=== PATIENT | male | born 1955 | race Caucasian/White ===

== ENCOUNTER 2016-07-17 08:16 | Outpatient (CLI) | payer MEDICARE, BC ==
[~2016-07-17] VITALS: Ht 188 cm; Wt 71.7 kg
[2016-07-17] VITALS (8 sets, daily range): BP systolic 83–100; BP diastolic 49–58
[~2016-07-17 08:16] MED LIST: ALPR1TAB6 PO; ALPR2TAB5 PO; AMIT25TA PO; APIX5TAB PO; ASCO100065 PO; ASCO500T2 PO; ASPI-482 PO; ATEN25TA PO; CHOL3000 PO; CLOP75TA PO; COCO1000 PO; CYAN1TAB28 PO; DIGO125T PO; FLAX10003 PO; GABA-586 PO; HAWT150C PO; LACT1CAP6 PO; LUTE40CA PO; MAGN400C PO; MAGN500C PO; MULT-208 PO; NIAC100T2 PO; OMEG1CAP28 PO; OMEG1CAP6 PO; OMEP40CA5 PO; PRED-220 PO; TRAM50TA PO; VITA100020 PO; VITA1TAB19 PO; ZINC30CA PO; ZINC50TA2 PO
[2016-07-17] MEDS ORDERED: [UNRECOGNIZED DRUG - OTHER] PO (08:40)
[2016-07-17] MEDS ORDERED: LEVO500T11 PO (08:40)
[2016-07-17] MEDS ORDERED: ARGI1000 PO (08:40)
[2016-07-17 09:01] LABS: BASO % 1 % (0-3); EOS % 2 % (0-3); HEMATOCRIT 40.5 % (39.0-53.0); HEMOGLOBIN 13.8 g/dL (13.0-17.5); LYMPH # 1.9 x10^3/uL (1.0-4.8); LYMPH % 26 % (24-48); MEAN CORPUSCULAR HEMOGLOBIN 30 pg (25-35); MEAN CORPUSCULAR HGB CONC 34 g/dL (31-37); MEAN CORPUSCULAR VOLUME 89 fL (79-100); MONO % 9 % (0-9); NEUT % 63 % (31-73); PLATELET COUNT 195 x10^3/uL (140-400); RED BLOOD COUNT 4.55 x10^6/uL (4.30-5.70); WHITE BLOOD COUNT 7.6 x10^3/uL (4.0-11.0)
[2016-07-17 09:11] LABS: INR 1.1 (0.8-1.1); PROTHROMBIN TIME PATIENT 13.8 SEC (11.7-14.0)
[2016-07-17 09:14] LABS: CALCIUM 9.8 mg/dL (8.5-10.1); CREATININE 0.8 mg/dL (0.7-1.3); GFR 98.6
[2016-07-17] MEDS ORDERED: TURM500C7 PO (09:36)
[2016-07-17] MEDS ORDERED: UBID100C26 PO (09:36)
[2016-07-17] MEDS ORDERED: IOHEXOL 300 MG/ML 100ML VIAL. ONE (10:10)
[2016-07-17] MEDS ORDERED: LIDOCAINE 1% / SOD BICARB 8.4% 20 ML VIAL. IJ ONE ×2 (10:10→11:15)
[2016-07-17] MEDS ORDERED: IODIXANOL 320MG/ML 50ML VIAL. ONE (10:10)
[2016-07-17] MEDS ORDERED: IODIXANOL 320 MG/ML 100 ML VIAL. ONE (10:10)
[2016-07-17] MEDS ORDERED: HEPARIN for ARTERIAL LINE 1,500 ML ONE (10:10)
[2016-07-17] MEDS ORDERED: FENTANYL PF 100 MCG/2 ML VIAL. ONE (10:32)
[2016-07-17] MEDS ORDERED: MIDAZOLAM HCL 2 MG/2 ML VIAL. ONE (10:33)
[2016-07-17] MEDS ORDERED: IODIXANOL 320 MG/ML 100 ML VIAL. IART ONE (11:15)
[2016-07-17] MEDS ORDERED: CONTRAST GIVEN MC PRN (11:15)
[2016-07-17] MEDS ORDERED: FENTANYL PF 100 MCG/2 ML VIAL. IV ONE (11:15)
[2016-07-17] MEDS ORDERED: MIDAZOLAM HCL 2 MG/2 ML VIAL. IV ONE (11:15)
[2016-07-17] MEDS ORDERED: IOHEXOL 300 MG/ML 100ML VIAL. IART ONE (11:15)
--- NOTE | 2016-07-17 12:01 | PDOC1 ---
History and Physical Date of Procedure Date of Admission 07/17/16 Procedure Procedure Abdominal aortogram with rt leg angio +/- intervention Indication Indication Recurrent rt leg pain. Thrombosed rt fem-pop graft by Doppler. Past Medical History Past Medical History See Nursing Pre Procedure PMH Past Surgical History Past Surgical History See Nursing Pre Procedure PSH Current Medications Current Medications Current Medications Lidocaine/Sodium Bicarbonate 20 ml 20 ml STK-MED ONCE IJ ; Start 07/17/16 at 10: 10; Stop 07/17/16 at 10:11; Status DC Heparin Sodium/ Sodium Chloride 1,500 ml @ As Directed STK-MED ONCE .ROUTE ; Start 07/17/16 at 10:10; Stop 07/17/16 at 10:11; Status DC Iodixanol (Visipaque 320) 50 ml STK-MED ONCE .ROUTE ; Start 07/17/16 at 10:10; Stop 07/17/16 at 10:11; Status DC Iohexol (Omnipaque 300 Mg/ml) 100 ml STK-MED ONCE .ROUTE ; Start 07/17/16 at 10: 10; Stop 07/17/16 at 10:11; Status DC Iodixanol (Visipaque 320) 100 ml STK-MED ONCE .ROUTE ; Start 07/17/16 at 10:10; Stop 07/17/16 at 10:11; Status DC Fentanyl Citrate (Fentanyl 2ml Vial) 100 mcg STK-MED ONCE .ROUTE ; Start at 10:32; Stop 07/17/16 at 10:33; Status DC Midazolam HCl (Versed) 2 mg STK-MED ONCE .ROUTE ; Start 07/17/16 at 10:33; Stop 07/17/16 at 10:34; Status DC Heparin Sodium/ Sodium Chloride 1,000 unit 1X ONCE IART Last administered on t 11:39; Start 07/17/16 at 11:15; Stop 07/17/16 at 11:16; Status DC Lidocaine/Sodium Bicarbonate (Buffered Lidocaine 1%) 20 ml 1X ONCE IJ Last administered on 07/17/16t 11:15; Start 07/17/16 at 11:15; Stop 07/17/16 at 11:16 ; Status DC Midazolam HCl (Versed) 2 mg 1X ONCE IV ; Start 07/17/16 at 11:15; Stop at 11:16; Status DC Fentanyl Citrate (Fentanyl 2ml Vial) 100 mcg 1X ONCE IV ; Start 07/17/16 at 11: 15; Stop 07/17/16 at 11:16; Status DC Iohexol (Omnipaque 300 Mg/ml) 100 ml 1X ONCE IART Last administered on t 11:40; Start 07/17/16 at 11:15; Stop 07/17/16 at 11:16; Status DC Iodixanol (Visipaque 320) 100 ml 1X ONCE IART Last administered on 07/17/16t 11:15; Start 07/17/16 at 11:15; Stop 07/17/16 at 11:16; Status DC Info (Do NOT chart on this entry -- for MONITORING) 1 each PRN DAILY PRN MC SEE COMMENTS; Start 07/17/16 at 11:15; Stop 07/19/16 at 11:14 Active Scripts Active Reported Turmeric (Turmeric Root Extract) 500 Mg Capsule 500 Mg PO Coq-10 (Ubidecarenone) 100 Mg Capsule 300 Mg PO DAILY L-Carnitine (Levocarnitine) 500 Mg Tablet 1,500 Mg PO DAILY L-Arginine (Arginine Hcl) 1,000 Mg Tablet 3,000 Mg PO DAILY [alpha folic acid] 1 Tab PO DAILY Coconut Oil 1,000 Mg Capsule 1,000 Mg PO UD Vitamin [id number]-[id number] Acid Tablet (Cyanocobalamin/Folic Acid) 1 Each Tablet 1 Each PO B Complex (Vitamin B Complex) 1 Each Tablet 1 Each PO Vitamin D3 (Cholecalciferol (Vitamin D3)) 3,000 Unit Tablet 3,000 Unit PO DAILY Vitamin E (Vitamin E Mixed) 1,000 Unit Capsule 1,000 Unit PO DAILY Lutein 40 Mg Capsule 40 Mg PO DAILY Niacin 100 Mg Tablet 300 Mg PO HS Amitriptyline Hcl 25 Mg Tablet 1 Tab PO QHS Gabapentin 300 Mg Capsule 300 Mg PO BID Zinc (Zinc Gluconate-Zinc Picolinate) 30 Mg Capsule 120 Mg PO DAILY Fish Oil 1,200 Mg Softgel ([place]-3 Fatty Acids/Fish Oil) 1 Each Capsule 2 Each PO DAILY Magnesium (Magnesium Oxide) 500 Mg Capsule 1,000 Mg PO DAILY Vitamin C (Ascorbic Acid) 1,000 Mg Tab.chew 2,000 Mg PO Eliquis (Apixaban) 5 Mg Tablet 5 Mg PO DAILY last dose was Thursday07/14/16 Alprazolam 1 Mg Tablet 1 Mg PO Q4HRS PRN Prednisone 10 Mg Tablet 10 Mg PO PRN PRN Digoxin 125 Mcg Tablet 1 Tab PO DAILY Allergies Allergies: Coded Allergies: Penicillins (Verified Allergy, Intermediate, 07/17/16) Physical Exam Vital Signs Vital Signs Date Time Temp Pulse Resp B/P Pulse Ox O2 Delivery O2 Flow Rate FiO2 07/17/16 11:34 50 14 100 Room Air 07/17/16 09:31 97.8 100/58 97.8 Lungs: Clear to auscultation Heart: Other (Irregular rate and rhythm) 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 Nonpalpable rt ankle/foot pulses Rt foot warm, without ischemic ulcerations Diagnostic Data/Imaging Images Prior PMC arteriograms/interventions reviewed. Assessment Assessment Severe PAD. Recurrent rt leg pain. Thrombosed rt Fem-Pop graft by Doppler. Problems: Plan Plan Diagnostic arteriogram +/- intervention. NOREEN PRICE MD Jul 17, 2016 12:01
--- NOTE | 2016-07-17 12:12 | PDOC ---
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 Recurrent rt leg pain. Thrombosed rt fem-pop graft by Doppler. Post-Procedure Diagnosis Post-Procedure Diagnosis Same. No significant rt iliac inflow disease---previously stented Thrombosed rt fem-pop graft Thrombosed [place] pop artery between knee joint and distal graft anastomosis-- previously angioplastied and stented. Severe to critical narrowing of TPT and proximal segment of single vessel PT distal r/o---previously angioplastied. PT from mid calf down widely patent. Procedure Performed Procedure Performed Abdominal aortogram with rt leg angio Type of Anesthesia Type of Anesthesia Local only Estimated Blood Loss EBL: 25 cc Condition of Patient Condition of Patient Stable. No apparent complication. Disposition Disposition Home from [facility] post recovery, if no problems. F/u with Dr Segovia at her office. Full report to follow. NOREEN PRICE MD Jul 17, 2016 12:12
--- NOTE | 2016-07-18 08:32 | RAD ---
Abdominal aortogram with selective right lower extremity arteriogram Indication: 61-year-old male with known severe PAD. He is status post previous peripheral vascular bypass and percutaneous intervention procedures. He has recurrent right lower extremity pain. Recent [facility] duplex Doppler examination revealed thrombosis of right common xxfxjee-ihcpt-digb popliteal bypass graft. Diagnostic angiography, with possible intervention, has been requested. Fluoroscopy time: 6 minutes Kerma-area Product: 81 Gycm2 Contrast material: 40 cc Omnipaque 300. 123 cc Visipaque 320. Anesthesia: Local only. Consent: The procedure was explained in its entirety to the patient and/or the patient's designated primary care sales representative by a member of the treatment team. This included a discussion of risks and benefits and commonly accepted alternatives to the procedure, as well as expected consequences of no treatment at all. Discussion of risks included, but was not limited to, those that are most frequent and those that are rare, but possibly severe or life-threatening, as well as the possibility of unforeseen complications. Sterility: All elements of maximal sterile barrier technique were utilized, including cap, mask, sterile gown, sterile gloves, large sterile sheet, appropriate hand hygiene, and 2% chlorhexidine for cutaneous antisepsis. Procedure: Informed consent was obtained from the patient. He was placed supine on the angiography table. Preliminary ultrasound examination of left groin revealed wide patency of left common femoral artery, which was documented with a single hard copy ultrasound image. Left groin was then prepped and draped in the usual sterile fashion, utilizing all elements of maximal sterile barrier technique, as described above. Moderate sedation was provided with IV Versed and fentanyl. Using aseptic technique, local anesthesia, direct ultrasound guidance, and the micropuncture system, a 5 [place] left common femoral artery sheath was successfully introduced. Abdominal aortogram: A 5 [place] Omni Flush catheter was advanced into suprarenal abdominal aorta. Omnipaque 300 was injected and abdominal aortogram DSA images were obtained. Findings: Distal infrarenal abdominal aorta shows moderate atherosclerotic plaquing, without significant stricture and without aneurysmal dilatation. No hemodynamically significant renal artery stenosis is identified. SMA and KEN are patent. Oblique pelvis injection: The Omni Flush catheter was withdrawn into terminal abdominal aorta, just above bifurcation. Omnipaque 300 was again injected and DSA images were obtained over pelvis in the MONGOLIAN projection. Findings: Previously placed right common iliac artery stent remains patent. There is no hemodynamically significant common iliac or external iliac artery stenosis, bilaterally. Both hypogastric arteries are patent. Right lower extremity arteriogram: The Omni Flush catheter was advanced across the bifurcation over a Glidewire and was positioned within contralateral right common femoral artery. Multiple injections of Visipaque were performed digital subtraction images were obtained from right groin through foot. Findings: Right common femoral artery and deep femoral artery are widely patent. Complete, chronic origin occlusion of right superficial femoral artery is again seen. The patient's right common kpbvajp-hyaff-rrnx popliteal bypass graft is completely occluded, as is Viabahn stent containing [place] popliteal artery from distal graft anastomosis to a level just above knee joint. Right popliteal artery is then reconstituted just above knee joint, and shows long segment moderate narrowing below knee joint, followed by patent patch angioplasty distally. Severely diseased right anterior tibial artery is occluded at proximal calf, without distal reconstitution. Right tibioperoneal trunk is occluded below the distal popliteal patch angioplasty. Posterior tibial artery is reconstituted at proximal-mid calf, and is widely patent through plantar vessels at mid foot. Peroneal artery is not visualized. Patient tolerated the procedure well without apparent location. Hemostasis was achieved at the left groin puncture site utilizing the Mynx closure system. Impression: 1. No abdominal aortic aneurysm or significant iliac inflow stenosis, bilaterally. 2. Widely patent right deep femoral artery 3. Complete occlusion of [place] right SFA. Complete occlusion of right common rfucgog-pbqye-pgld popliteal bypass graft. Complete occlusion of [place] (previously Viabahn stented) popliteal artery from distal graft anastomosis to a level just above knee joint. 4. Right popliteal artery at/below knee joint is patent, however, there is severe tibial trifurcation occlusive disease, as described. Single-vessel distal runoff is provided via posterior tibial artery, which is reconstituted at proximal-mid calf, and is widely patent through plantar vessels at mid foot. Severely diseased anterior tibial artery is occluded proximally, without distal reconstitution. Right peroneal artery is not visualized.
== END 2016-07-17 14:50 | disposition home or self-care (01) ==
LOC: INTRAD 08:16
PROVIDERS: ATTEND Family Medicine
DX: I70.221 Atherosclerosis of native arteries of extremities with rest pain, right leg (principal); I70.721 Atherosclerosis of other type of bypass graft(s) of the extremities with rest pain, right leg; I77.89 Other specified disorders of arteries and arterioles; I10 Essential (primary) hypertension; E03.9 Hypothyroidism, unspecified; F41.9 Anxiety disorder, unspecified; F32.9 Major depressive disorder, single episode, unspecified; K21.9 Gastro-esophageal reflux disease without esophagitis
CPT/HCPCS: 36245; 36415; 75625; 75710; 75774; 80048; 85027; 85610; A4215; C1760; C1769; C1892; C1894; G0269; Q9967

== ENCOUNTER → 2016-10-10 | Outpatient (CLI) | payer MEDICARE, BC ==
[2016-07-17 14:25] VITALS: BP 85/49
[~2016-10-10] MED LIST changes: +ARGI1000 PO; +LEVO500T11 PO; +TURM500C7 PO; +UBID100C26 PO; +[UNRECOGNIZED DRUG - OTHER] PO
--- NOTE | 2016-10-10 07:56 | RAD ---
Exam performed: 3 views right knee and right foot. History: Right foot and knee pain multiple surgeries for blood clots. Date of service: 10/10/16. Comparison: No relevant previous exams are available for comparison. 3 views right foot findings: Normal alignment is preserved. There is no acute fracture or dislocation. There is mild soft tissue swelling. No foreign body. Impression: 1. Mild soft tissue swelling without underlying bony abnormality. End impression. 3 views right knee findings: Normal alignment of the medial and lateral tibiofemoral joint is preserved. There is mild narrowing of the patellofemoral joint compartment with mild osteophytic spurring. There is no acute fracture or dislocation. No soft tissue swelling or foreign body. There are multiple surgical dara in the soft tissues around the knee with a stent probably in the popliteal artery. Impression: 1. 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 2. No acute abnormality seen.
--- NOTE | 2016-10-10 10:08 | RAD ---
Exam performed: Bilateral lower extremity arterial Doppler. History: Peripheral arterial disease, claudication. Date of service: 10/10/16. Comparison: 07/08/16. Technique: Real-time grayscale, color-flow, duplex Doppler and spectral analysis of both lower extremity arterial system is performed and images are obtained. Findings: There is chronic complete occlusion of the right superficial femoral artery. There is also complete occlusion of the right femoral popliteal graft. There is also occlusion/near complete occlusion of the right calf arteries. Trickle of flow is seen in the right dorsalis pedis artery with monophasic waveform. There is also scattered atheromatous plaquing in the left lower extremity arterial system. Doppler interrogation reveals biphasic waveforms throughout. No areas of focal increased a systolic velocity to suggest focal stenosis seen. Impression: Worsening complete occlusion of the right superficial femoral artery and femoral popliteal graft as well as the majority of the right calf arteries. There is a triple of flow in the right dorsalis pedis artery. Atheromatous plaquing involving the left lower extremity arterial system demonstrating predominantly biphasic waveforms. No evidence of focal stenosis identified.
== END | disposition home or self-care (01) ==
LOC: US 06:19
PROVIDERS: ATTEND Family Medicine
DX: I65.23 Occlusion and stenosis of bilateral carotid arteries (principal); M25.561 Pain in right knee; M79.671 Pain in right foot; M17.11 Unilateral primary osteoarthritis, right knee; M19.071 Primary osteoarthritis, right ankle and foot
CPT/HCPCS: 73562; 73630; 93925

== ENCOUNTER → 2017-08-11 | Outpatient (CLI) | payer MEDICARE, BC | END | disposition home or self-care (01) | LOC: US 12:24 | DX: R22.41 Localized swelling, mass and lump, right lower limb (principal) | CPT/HCPCS: 76882 ==

== ENCOUNTER → 2018-02-10 | Outpatient (CLI) | payer MEDICARE, BC ==
[2016-07-17 14:25] VITALS: BP 85/49
[~2018-02-10] MED LIST changes: -ARGI1000 PO; -MAGN500C PO; +MAGN500C10 PO; +[UNRECOGNIZED DRUG - CODE] PO
== END | disposition home or self-care (01) ==
LOC: EKG 08:50
PROVIDERS: ATTEND Family Medicine
DX: I48.91 Unspecified atrial fibrillation (principal); I10 Essential (primary) hypertension; M19.071 Primary osteoarthritis, right ankle and foot; M17.11 Unilateral primary osteoarthritis, right knee; E03.9 Hypothyroidism, unspecified; J44.9 Chronic obstructive pulmonary disease, unspecified; I25.10 Atherosclerotic heart disease of native coronary artery without angina pectoris; Z87.891 Personal history of nicotine dependence; Z86.718 Personal history of other venous thrombosis and embolism; Z90.49 Acquired absence of other specified parts of digestive tract; Z88.0 Allergy status to penicillin; Z82.49 Family history of ischemic heart disease and other diseases of the circulatory system; Z84.89 Family history of other specified conditions; Z83.6 Family history of other diseases of the respiratory system
CPT/HCPCS: 93225

== ENCOUNTER → 2018-03-17 | Outpatient (CLI) | payer MEDICARE, BC ==
[2016-07-17 14:25] VITALS: BP 85/49
[~2018-03-17] MED LIST changes: +BARIUM SULFATE 340 GM SUSPENSION. PO ONE; +BARIUM SULFATE 60% 355 ML SUSP PO ONE; +BARIUM SULFATE 700 MG TABLET PO ONE; +SIMETHICONE/SOD BICARB/CITRIC ACID PACKET. PO ONE
--- NOTE | 2018-03-17 14:03 | RAD ---
Clinical indications: ALS. Difficulty swallowing. Dysphagia, oral pharyngeal phase. Can only soft foods. Weight loss.. Technique: A fluoroscopic esophagram was performed with thin liquid barium in the upright and recumbent positions. A 13 mm barium pill was administered. Total fluoroscopic time: 2.0 minutes. Total fluoroscopic spot images: 1395. Findings: Swallowing appeared normal and no laryngeal penetration or aspiration was seen. There was no delay in initiation of the swallow. There was mild mid and distal esophageal dysmotility with the primary peristaltic wave. Eventually, a secondary peristaltic wave propagated the contrast bolus down the esophagus and into the stomach. Contrast bolus was cleared from the esophagus with subsequent swallows of water in the recumbent position. A 13 mm barium pill passed easily through the esophagus. Therefore, no esophageal stricture was demonstrated. No hiatal hernia or gastroesophageal reflux was evident even after Valsalva maneuvers and the water siphon test in the recumbent position. No esophageal mucosal fold thickening or irregularity or ulceration was seen radiographically. There is poor gastric emptying with poor gastric contractions. This may indicate gastroparesis. Impression: Mild mid and distal esophageal dysmotility. No esophageal stricture or obstruction. Poor gastric emptying and poor gastric contractions. This may indicate gastroparesis. No laryngeal aspiration. Electronically signed by: Dmitri Frazier MD (03/17/2018 2:00 PM) [facility]
== END | disposition home or self-care (01) ==
LOC: RAD 13:43
PROVIDERS: ATTEND Family Medicine
DX: R13.12 Dysphagia, oropharyngeal phase (principal); F17.200 Nicotine dependence, unspecified, uncomplicated
CPT/HCPCS: 74220

== ENCOUNTER → 2018-09-27 | Outpatient (CLI) | payer MEDICARE, BC ==
[2016-07-17 14:25] VITALS: BP 85/49
[~2018-09-27] MED LIST changes: -BARIUM SULFATE 340 GM SUSPENSION. PO ONE; -BARIUM SULFATE 60% 355 ML SUSP PO ONE; -BARIUM SULFATE 700 MG TABLET PO ONE; -GABA-586 PO; +GABA300C18 PO; -SIMETHICONE/SOD BICARB/CITRIC ACID PACKET. PO ONE
--- NOTE | 2018-09-27 08:55 | RAD ---
Right lower extremity arterial ultrasound, 09/27/2018: HISTORY: Peripheral vascular disease, claudication Duplex evaluation of the major arteries in the right lower extremity was performed including grayscale, color-flow and spectral Doppler analysis. There is moderate plaquing in the right common femoral artery. There is monophasic blood flow in that vessel. There is also monophasic blood flow in the upper portion of the right deep femoral artery. The right superficial femoral artery is occluded in the thigh. A bypass graft in the right thigh is also occluded. There is weak monophasic blood flow in the right popliteal artery, presumably provided by collateral flow. Weakly pulsatile monophasic blood flow is identified in the right posterior tibial and anterior tibial arteries in the right lower leg. A patent peroneal artery could not be visualized. There is questionable faint nonpulsatile blood flow in the right dorsalis pedis artery. IMPRESSION: 1. Occlusion of the right superficial femoral artery as well as a bypass graft in the right thigh. 2. Dampened, weakly pulsatile blood flow in the right posterior tibial and anterior tibial arteries. 3. Probable peroneal artery occlusion. Electronically signed by: Billy Savage MD (09/27/2018 8:52 AM) [facility]
== END | disposition home or self-care (01) ==
LOC: US 07:03
PROVIDERS: ATTEND Family Medicine
DX: I77.1 Stricture of artery (principal); I73.9 Peripheral vascular disease, unspecified; Z95.1 Presence of aortocoronary bypass graft
CPT/HCPCS: 93926

== ENCOUNTER → 2018-10-08 | Outpatient (CLI) | payer MEDICARE, BC ==
[2016-07-17 14:25] VITALS: BP 85/49
[~2018-10-08] MED LIST changes: +CONTRAST GIVEN. MC PRN; +IOHEXOL 350 MG/ML 100 ML VIAL. IV ONE
--- NOTE | 2018-10-08 18:27 | RAD ---
CT arteriogram of the lower extremities. HISTORY: Peripheral vascular disease. CT arteriogram was done using 95 mL Omnipaque 350 contrast. Multiplanar images were obtained. Three-dimensional images were obtained. There is a left lower lobe infiltrate suggesting an acute pneumonia. There is minimal right lower lobe infiltrate. A liver lesion is not identified. Spleen and adrenal glands are normal. Pancreas is normal. There is no mass or hydronephrosis in the kidneys. There is no bowel obstruction. There is increased stool in the colon. There is a superficial fluid collection anterior to the rectus abdominis muscle in the lower abdominal wall, in the pelvis measuring 10 x 0.3 x 6.3 cm Celiac and superior mesenteric arteries are patent. Renal arteries are patent. The inferior mesenteric artery is open. There is an accessory renal artery of the lower pole on the left which is patent. There is atherosclerotic change in the aorta without an aneurysm. There is moderate narrowing of the left common iliac artery with mild narrowing of the right common iliac. There is a stent in the common iliac on the right. There is narrowing of both internal iliac arteries but they're both patent. There is moderate narrowing of the proximal external iliac on the left. There is not evidence of severe iliac stenosis. Right leg runoff shows mild plaque at the common femoral. On the femoral is patent. There is occlusion of the proximal superficial femoral artery. There is occlusion of femoral grafts. There is occlusion of the graft in the popliteal. There are multiple collaterals through the muscle branches which reconstitute the posterior tibial. The posterior tibial is the main runoff to the ankle and foot. There is mild to moderate stenosis of the left common femoral. There is severe stenosis of the origin of the profunda femoral on the left. There is moderate disease in the proximal superficial femoral. There is a patent stent in the mid superficial femoral on the left. There is multisegment mild to moderate disease in the distal left superficial femoral and in the popliteal. Posterior tibial and anterior tibial are occluded in the proximal calf on the left. Peroneal is the main runoff to the ankle with poor flow to the foot. IMPRESSION: 1. Celiac and mesenteric arteries are patent. 2. Renal arteries are patent. There is a accessory renal on the left. 3. Moderate common iliac narrowing on the left. 4. Patent common iliac stent on the right. 5. Anterior abdominal wall fluid collection superficial to the rectus abdominis muscles. 6. Long segment complete occlusion of the superficial femoral artery and femoral popliteal grafts on the right. 7. Reconstitution of the posterior tibial in the right calf which is the main runoff vessel to the foot on the right. 8. Multi segment disease in the femoral and superficial femoral arteries on the left but no occlusion. 9. Occlusion of the anterior and posterior tibials in the proximal calf with peroneal runoff to the ankle on the left. 10. Narrowing of the left profundofemoral artery at the origin Electronically signed by: Donell Morel MD (10/08/2018 6:24 PM) [facility]
== END | disposition home or self-care (01) ==
LOC: CT 07:43
PROVIDERS: ATTEND Surgery
DX: I70.0 Atherosclerosis of aorta (principal); I77.1 Stricture of artery; R91.8 Other nonspecific abnormal finding of lung field; I70.8 Atherosclerosis of other arteries; I73.9 Peripheral vascular disease, unspecified
CPT/HCPCS: 75635; Q9967

== ENCOUNTER → 2019-03-04 | Outpatient (CLI) | payer MEDICARE, BC ==
[2016-07-17 14:25] VITALS: BP 85/49
[~2019-03-04] MED LIST changes: -CONTRAST GIVEN. MC PRN; -IOHEXOL 350 MG/ML 100 ML VIAL. IV ONE; +OMEP40CA45 PO; -OMEP40CA5 PO
--- NOTE | 2019-03-04 13:27 | KCIC ---
Soft tissue ultrasound of the right groin without comparison for right groin mass, history of femoropopliteal bypass. Technique an findings: Real-time grayscale and color Doppler evaluation of the area of interest in the right thigh is performed. There is moderate diffuse atherosclerosis involving common femoral artery. A femoropopliteal bypass is present, though this is promptly occluded just beyond the anastomosis. There is some aneurysmal dilatation of the common femoral artery at the anastomosis. The profunda femoral artery is patent. At the area of the anastomosis and extending into the proximal thigh there is a 2.6 x 0.7 cm saddle of heterogeneously hypoechoic soft tissue draped over the vasculature, with a contiguous component extending superficially in the subcutaneous tissues. This most likely represents scar tissue related to prior surgery. No loculated fluid collections are identified. There is no free fluid or edema within the tissues. There is no vascularity within the soft tissue mass. There are 2 morphologically normal-appearing inguinal lymph nodes within the subcutis tissues. IMPRESSION: 1. Occluded femoropopliteal bypass. 2. Soft tissue density around the anterior aspect of the bypass anastomosis with an appearance most suggestive of benign though somewhat robust scar tissue. Electronically signed by: José Miguel Laughlin MD (03/04/2019 1:23 PM) [id number]
== END | disposition home or self-care (01) ==
LOC: KCIC US 10:26
PROVIDERS: ATTEND Family Medicine
DX: I70.201 Unspecified atherosclerosis of native arteries of extremities, right leg (principal)
CPT/HCPCS: 76881

== ENCOUNTER → 2019-03-11 | Outpatient (CLI) | payer MEDICARE, BC ==
[2016-07-17 14:25] VITALS: BP 85/49
[~2019-03-11] MED LIST changes: +IOHEXOL 300 MG/ML 100ML VIAL. IV ONE
--- NOTE | 2019-03-11 12:28 | KCIC ---
EXAM: CT right thigh following the administration of IV contrast DATE: 03/11/2019 9:30 AM COMPARISON: No prior INDICATION: Right thigh mass history of peripheral arterial disease, atrial fibrillation, palpable mass 12-13 days TECHNIQUE: CT of the right thigh was performed following administration of IV contrast. Axial coronal and sagittal reformatted images were generated. PQRS compliance statement - One or more of the following individualized dose reduction techniques were utilized for this study: 1. Automated exposure control 2. Adjustment of the mA and/or kV according to patient size 3. Use of iterative reconstruction technique FINDINGS: Postoperative changes of right femoropopliteal bypass are seen. At the proximal anastomosis there is moderate fat infiltration, this corresponds to site of palpable abnormality as denoted by radiopaque BB. The right femoral-popliteal bypass graft is compressed with associated soft tissue enhancement and likely fluid extending along the graft. Dense sclerosis of the [place] SFA. Subcutaneous soft tissue collection overlying the lower pelvis measuring approximately 10 x 2.5 cm. Bladder is partially distended. Pelvic ascites is partially profiled. IMPRESSION: 1. The site of palpable abnormality corresponds to subcutaneous soft tissue swelling adjacent to the femoral attachment of the right femoropopliteal bypass. 2. Fluid and enhancement is seen extending along the right femoral popliteal bypass graft which is decompressed and occluded. Although hemorrhagic products along the graft would have similar appearance, infection is a primary consideration. If further imaging is required, ultrasound or white blood cell scan may provide additional details. In addition aspiration can be performed if fluid is seen by ultrasound. 3. Subcutaneous fluid collection with mild peripheral enhancement overlying the lower pelvis may also represent an abscess although postoperative seroma have similar appearance 4. Pelvic ascites is partially profiled. Electronically signed by: Sami King MD (03/11/2019 12:25 PM) [facility]
== END | disposition home or self-care (01) ==
LOC: KCIC CT 08:57
PROVIDERS: ATTEND Family Medicine
DX: R22.41 Localized swelling, mass and lump, right lower limb (principal); I48.91 Unspecified atrial fibrillation; F17.200 Nicotine dependence, unspecified, uncomplicated
CPT/HCPCS: 73701; Q9967

== ENCOUNTER 2019-05-31 06:57 | Outpatient (CLI) | payer MEDICARE, BC ==
[2019-05-31] VITALS (19 sets, daily range): BP systolic 85–116; BP diastolic 50–62
[~2019-05-31] VITALS: Ht 188 cm; Wt 60.3 kg
[~2019-05-31 06:57] MED LIST changes: +ALPH600C5 PO; +CHRM1TAB PO; +CHRO1000 PO; +CIRCUMIN PO; -DIGO125T PO; +DIGO125T3 PO; +GARL600T PO; +GRAP50CA3 PO; +HAWT565C PO; -IOHEXOL 300 MG/ML 100ML VIAL. IV ONE; +MILK500C PO; +OLIV250C PO; +OREG1500 PO; +SELE200C PO; +VITA40TA PO; +[UNRECOGNIZED DRUG - OTHER] PO
[2019-05-31 07:26] LABS: BASO # 0.1 x10^3/uL (0.0-0.2); BASO % 1 % (0-3); EOS # 0.4 x10^3/uL (0.0-0.7); EOS % 7 % (0-3); HEMOGLOBIN 15.7 g/dL (13.0-17.5); LYMPH # 1.5 x10^3/uL (1.0-4.8); LYMPH % 27 % (24-48); MEAN CORPUSCULAR HEMOGLOBIN 31 pg (25-35); MEAN CORPUSCULAR HGB CONC 34 g/dL (31-37); MEAN CORPUSCULAR VOLUME 91 fL (79-100); MONO # 0.5 x10^3/uL (0.0-1.1); MONO % 10 % (0-9); NEUT % 56 % (31-73); PLATELET COUNT 158 x10^3/uL (140-400); RED BLOOD COUNT 5.03 x10^6/uL (4.30-5.70); RED CELL DISTRIBUTION WIDTH 13.6 % (11.5-14.5); WHITE BLOOD COUNT 5.4 x10^3/uL (4.0-11.0)
[2019-05-31 07:37] LABS: PROTHROMBIN TIME PATIENT 13.2 SEC (11.7-14.0)
[2019-05-31 07:58] LABS: CALCIUM 9.5 mg/dL (8.5-10.1); CREATININE 0.9 mg/dL (0.7-1.3); GFR 85.2; POTASSIUM 3.7 mmol/L (3.5-5.1)
[2019-05-31] MEDS ORDERED: IODIXANOL 320 MG/ML 100 ML VIAL. ONE (08:10)
[2019-05-31] MEDS ORDERED: HEPARIN for ARTERIAL LINE 1,500 ML ONE (08:10)
[2019-05-31] MEDS ORDERED: LIDOCAINE WITH 8.4% SOD BICARB 3 ML DISP.SYRIN. ONE (08:10)
[2019-05-31] MEDS ORDERED: DIGO125T3 PO (08:16)
[2019-05-31] MEDS ORDERED: HEPARIN for IV BOLUS 10,000 UNIT/10 ML VIAL. ONE (08:56)
[2019-05-31] MEDS ORDERED: HEPARIN for IV BOLUS 10,000 UNIT/10 ML VIAL. IV ONE (09:30)
[2019-05-31] MEDS ORDERED: LIDOCAINE WITH 8.4% SOD BICARB 3 ML DISP.SYRIN. IJ ONE (09:30)
[2019-05-31] MEDS ORDERED: IODIXANOL 320 MG/ML 100 ML VIAL. IART ONE (09:30)
--- NOTE | 2019-05-31 11:29 | PDOC ---
MODERATE SEDATION ASSESSMENT RISKS/ALTERNATIVES Risks/Alternatives Risks and alternatives of this type of sedation and procedure discussed with: RISK/ALTERNATIVES: Patient H & P ON CHART H & P H & P on chart and reviewed for co-morbid conditions and appropriate labs. H&P ON CHART: Yes STATUS PREG STATUS ASSESSED: Yes MEDS/ALLERGIES REVIEWED Meds/Allergies Reviewed Medications and Allergies including time and route of recently administered narcotics and sedatives. MEDS/ALLERGIES REVIEWED: Yes ASA RATING ASA RATING: II AIRWAY ASSESSMENT Airway Assessment Airway patency, oral function limitations, presence of caps, crowns, dentures, partials, and ability to extend neck assessed. AIRWAY ASSESSMENT: Yes MALLAMPATI SCORE MALLAMPATI SCORE: II PRE-SEDATION ASSESSMENT PRE-SEDATION ASSESSMENT: Yes DAISHA VELÁSQUEZ MD May 31, 2019 11:29
--- NOTE | 2019-05-31 11:35 | PDOC1 ---
History and Physical Date of Procedure Date of Admission 05.31.19 Procedure Procedure LLE angiogram Indication Indication CLI History of Present Illness Reason for Visit same Past Medical History Past Medical History Severe ASVD Cardiovascular: CHF Pulmonary: Other CENTRAL NERVOUS SYSTEM: Periperal neuropathy GI: No pertinent hx Heme/Onc: No pertinent hx Hepatobiliary: No pertinent hx Psych: No pertinent hx Musculoskeletal: Muscle atrophy, Weakness Rheumatologic: No pertinent hx Infectious disease: Other ENT: No pertinent hx Renal/: No pertinent hx Endocrine: No pertinent hx Dermatology: No pertinent hx Past Surgical History Past Surgical History: Other (fem pop bypass on right with possible chronic infection. patient refuses graft removal. ) Current Medications Current Medications Current Medications Iodixanol (Visipaque 320) 100 ml STK-MED ONCE .ROUTE ; Start 05/31/19 at 08:10; Stop 05/31/19 at 08:10; Status DC Lidocaine HCl (Buffered Lidocaine 1%) 3 ml STK-MED ONCE .ROUTE ; Start 05/31/19 at 08:10; Stop 05/31/19 at 08:10; Status DC Heparin Sodium/ Sodium Chloride 1,500 ml @ As Directed STK-MED ONCE .ROUTE ; Start 05/31/19 at 08:10; Stop 05/31/19 at 08:10; Status DC Heparin Sodium (Porcine) (Heparin Sodium) 10,000 unit STK-MED ONCE .ROUTE ; Start 05/31/19 at 08:56; Stop 05/31/19 at 08:56; Status DC Heparin Sodium/ Sodium Chloride (HEPARIN for ARTERIAL LINE FLUSH) 1,000 unit 1X ONCE IART Last administered on 05/31/19at 09:55; Start 05/31/19 at 09:30; Stop 05/31/19 at 09:31; Status DC Heparin Sodium/ Sodium Chloride (HEPARIN for ARTERIAL LINE FLUSH) 1,000 unit 1X ONCE IART Last administered on 05/31/19at 09:55; Start 05/31/19 at 09:30; Stop 05/31/19 at 09:31; Status DC Lidocaine HCl (Buffered Lidocaine 1%) 3 ml 1X ONCE IJ Last administered on 05/31/19at 09:55; Start 05/31/19 at 09:30; Stop 05/31/19 at 09:31; Status DC Iodixanol (Visipaque 320) 100 ml 1X ONCE IART Last administered on 05/31/19at 09:55; Start 05/31/19 at 09:30; Stop 05/31/19 at 09:31; Status DC Heparin Sodium (Porcine) (Heparin Sodium) 4,000 unit 1X ONCE IV Last administered on 05/31/19at 09:56; Start 05/31/19 at 09:30; Stop 05/31/19 at 09:31; Status DC Active Scripts Active Reported Digoxin 125 Mcg Tablet 125 Mcg PO DAILY [circumin] 800 Mg PO DAILY Apple Cider Vinegar Plus Tb (Chrm/Cider/Dr Bt-Org Peel/Gr T) 1 Each Tablet 1 Each PO DAILY Alpha Lipoic Acid 600 Mg Capsule 600 Mg PO DAILY Chromium Picolinate 1,000 Mcg Tablet 1,000 Mcg PO DAILY [place] Extract 250 Mg Capsule 1,000 Mg PO DAILY Oil Of Oregano (Oregano Oil) 1,500 Mg Capsule 200 Mg PO DAILY [place] Berries ([place]) 565 Mg Capsule 565 Mg PO DAILY Selenium 200 Mcg Capsule 1 Cap PO DAILY 30 Days Vitamin K2 40 Mcg Tablet 600 Mg PO DAILY Grape Seed Extract 50 Mg Capsule 240 Mg PO DAILY [chorella] 500 Mg PO DAILY Flax Oil (Flaxseed Oil) 1,000 Mg Capsule 2,000 Mg PO DAILY Milk Thistle 500 Mg Capsule 500 Mg PO DAILY Garlipure (Garlic Extract) 600 Mg Tablet 3,600 Mg PO DAILY Atenolol 25 Mg Tablet 1 Tab PO DAILY Coq-10 (Ubidecarenone) 100 Mg Capsule 300 Mg PO DAILY L-Carnitine (Levocarnitine) 500 Mg Tablet 1,500 Mg PO DAILY Vitamin Y02-[id number] Acid Tablet (Cyanocobalamin/Folic Acid) 1 Each Tablet 1 Each PO B Complex (Vitamin B Complex) 1 Each Tablet 1 Each PO Vitamin D3 (Cholecalciferol (Vitamin D3)) 3,000 Unit Tablet 3,000 Unit PO DAILY Vitamin E (Vitamin E Mixed) 1,000 Unit Capsule 1,000 Unit PO DAILY Niacin 100 Mg Tablet 300 Mg PO HS Amitriptyline Hcl 25 Mg Tablet 1 Tab PO QHS Zinc (Zinc Gluconate-Zinc Picolinate) 30 Mg Capsule 120 Mg PO DAILY Fish Oil 1,200 Mg Softgel ([place]-3 Fatty Acids/Fish Oil) 1 Each Capsule 2 Each PO DAILY Magnesium (Magnesium Oxide) 500 Mg Capsule 1,000 Mg PO DAILY Vitamin C (Ascorbic Acid) 1,000 Mg Tab.chew 2,000 Mg PO Alprazolam 1 Mg Tablet 1 Mg PO Q4HRS PRN Allergies Allergies: Coded Allergies: Penicillins (Verified Allergy, Intermediate, 07/17/16) Physical Exam Vital Signs Vital Signs Date Time Temp Pulse Resp B/P (MAP) Pulse Ox O2 Delivery O2 Flow Rate FiO2 05/31/19 11:15 49 16 98 Room Air 05/31/19 10:00 2.0 05/31/19 08:27 97.5 85/52 (63) 97.5 Lungs: Clear to auscultation Heart: Other (bradycardia) Psych/Mental Status: Mental status NL Vascular DP absent PT weak Assessment Assessment LLE sfa stenosis on prior CTA. Cold left foot. Plan Plan Angio and intervention DAISHA VELÁSQUEZ MD May 31, 2019 11:35
[2019-05-31] MEDS ORDERED: pletal (11:47)
[2019-05-31] MEDS ORDERED: ASPI-630 PO (11:59)
[2019-05-31] MEDS ORDERED: ASPI81TA59 PO (12:04)
--- NOTE | 2019-05-31 15:45 | NUR ---
Discharge Note: EYAD ARNDT Discharge instructions and discharge home medications reviewed with Patient and a copy given. All questions have been answered and understanding verbalized. The following instructions and handouts were given: groin site care and angioplasty after care Discontinued lines and drains: Peripheral IV intact. Patient discharged to Home or Self Care withSpousevia Wheelchair
--- NOTE | 2019-06-02 09:15 | RAD ---
06/02/2019 7:02 AM Procedure: 1.Left lower extremity angiography 2. Angioplasty of in-stent stenosis involving the proximal left superficial femoral artery 3. Placement of distal left superficial femoral artery self-expanding stent Clinical Indication: Long-standing severe peripheral vascular disease. Single vessel runoff on the left. Complex history of multiple right-sided interventions including multiple femoral bypass procedures. Suspected indolent graft infection on the right. Discussion: The patient was seen in consultation. We extensively discussed the nature of his peripheral vascular disease involving both lower extremities, including the revision, chronically occluded bypass graft on the right, possible indolent infection. Patient was advised that surgical removal of this graft is likely necessary, would be the next preferred step in his treatment. However despite thorough discussion of the risks and benefits of left-sided intervention in the current setting, he refuses surgery on the right. Given the patient's overall prognosis with progressive neuromuscular disease, and strong desire to avoid surgical intervention, antegrade endovascular treatment on the left was chosen. The procedure was explained in its entirety to the patient or the patients designated education courses sales representative by a member of the treatment team, including a discussion of the risks, benefits and commonly accepted alternatives to the procedure, as well as the expected consequences of no therapy whatsoever. Discussion of the risks included, but was not limited to, those that are most frequent and those that are rare but possibly severe or life-threatening, as well as the possibility of unforeseen complications. All elements of maximal sterile barrier technique including the use of a cap, mask, sterile gown, sterile gloves, large sterile sheet, appropriate hand hygiene, and 2% chlorhexidine for cutaneous antisepsis (or acceptable alternative antiseptic per current guidelines) were followed for this procedure. The left groin was prepped and draped using sterile barrier technique. 1% lidocaine was administered for local anesthesia. Ultrasound evaluation demonstrates the left common femoral artery to be calcified but patent. An approximately 40% stenosis is seen by ultrasound. The artery was accessed in an antegrade fashion using micropuncture technique and direct ultrasound guidance. Reference ultrasound images were saved the medical record. A 6 [place] sheath was placed. Left lower extremity angiography was performed demonstrating high-grade in-stent stenosis involving the proximal left superficial femoral artery. There is moderate to high-grade stenosis involving the distal SFA. The popliteal artery is patent. There is single vessel runoff to the ankle via the peroneal artery which feeds the distal anterior tibial artery and dorsalis pedis artery via collaterals. Runoff vasculature is essentially unchanged in appearance since angiography 09/19/2015. Balloon angioplasty of the proximal in-stent stenosis was performed with a 5 mm drug coated balloon resulting in significantly improved morphology and flow. 6 mm self expanding stent, postdilated to 5 mm was placed spanning the distal SFA occlusion which again resulted in significantly improved morphology and flow. Patient was transferred to the recovery area with sheath in place secondary to elevated ACT. Eventually the sheath was removed, manual pressure held, and sterile dressing applied. No immediate complications were identified. Total fluoroscopy time: 8.4 min Dose area product: 30 Gycm2 The procedures performed under local anesthesia only. Impression: High-grade in-stent stenosis involving the proximal left SFA, and moderate to high-grade distal left SFA treated with a combination of drug coated balloon angioplasty and self expanding stent placement as described above
== END 2019-05-31 15:58 | disposition home or self-care (01) ==
LOC: INTRAD 06:57
PROVIDERS: ATTEND Surgery
DX: I70.212 Atherosclerosis of native arteries of extremities with intermittent claudication, left leg (principal); I50.9 Heart failure, unspecified; Z88.0 Allergy status to penicillin
CPT/HCPCS: 36415; 37226; 75710; 76937; 80048; 85025; 85347; 85610; C1758; C1769; C1892; C1894; C2623; J1644; Q9967

== ENCOUNTER 2019-06-15 07:58 | Emergency (ER) | payer MEDICARE, BC ==
[~2019-06-15] VITALS: Ht 188 cm; Wt 59.0 kg
[~2019-06-15 07:58] MED LIST changes: +ASPI-630 PO; +ASPI81TA59 PO; +pletal
--- NOTE | 2019-06-15 08:19 | PHYS DOC ---
Past Medical History Past Medical History: A-Fib, CAD, DVT, Hypertension Past Surgical History: Appendectomy, Cholecystectomy, Tonsillectomy Additional Past Surgical Histo: Fem-pop Alcohol Use: None Drug Use: None Adult General Chief Complaint Chief Complaint: MECHANICAL FALL HPI HPI 64-year-old male presenting to the emergency department today after sustaining a fall. He reportedly falls frequently. Today it was an unwitnessed fall. His family heard the fall and went to his side. EMS was called and brings him in. He complains of neck and back pain he is in a c-collar. ROS: The pain is a sharp shooting nonradiating pain. He denies chest pain shortness of breath or abdominal pain. He denies hip injury numbness weakness or tingling. He denies syncope or loss of consciousness. All other review of systems is negative unless otherwise noted in history of present illness. ED course: 64-year-old male presenting the emergency department today after sustaining a mechanical fall. CT of the head neck thoracic and lumbar spine are negative. Chest x-ray shows pneumonia. Pelvis x-ray and hips are unremarkable for acute traumatic injury. Patient is not febrile and has not had a productive cough. His blood pressure is low here but he states it's always low in the 90s about. He is able to ambulate in the emergency department without feeling lightheaded. I offered the patient admission for IV antibiotics to be treated for pneumonia which he is not interested in and refuses. He does not want to be admitted. We will give the patient oral doxycycline for treatment for outpatient pneumonia. He is currently on Cipro and Flagyl for presumed diverticulitis that is not confirmed. He denies abdominal pain or diarrhea. I will have him switch over from the Cipro Flagyl to Doxy for treatment for pneumonia. F/u with pcp tomorrow. Return to the emergency department for any worsening symptoms. Review of Systems Review of Systems SEE ABOVE. Allergies Allergies Allergies Coded Allergies Type Severity Reaction Last Updated Verified Penicillins Allergy Intermediate 07/17/16 Yes Physical Exam Physical Exam SEE ABOVE General Appearance alert, cooperative, no distress, responsive Head Normocephalic, without obvious abnormality, atraumatic. No abrasions, lacerations, or echymosis. Eyes conjunctivae/corneas clear. PERRL, EOM's intact. Nose Nares normal. Septum midline. Mucosa normal. No drainage or sinus tenderness. Throat no blood or lacerations, normal alignment Neck supple, symmetrical, trachea midline, cervical collar in place C/T/L Back/Spine symmetric, normal curvature. ROM normal, no abrasions, ttp in the thoracic spine, no step-offs Lungs clear to auscultation bilaterally Chest Wall normal ribcage without tenderness to palpation, crepitus or em physema Heart reg rate and regular rhythm, S1, S2 normal, no murmur, click, rub or gallop Abdomen soft, non-tender. Bowel sounds normal. No masses, no organomegaly Pelvic stable Extremities extremities normal, atraumatic with normal range of motion Pulses 2+ and symmetric Skin Skin color, texture, turgor normal. No rashes or lesions Neurologic Grossly normal Eye opening: (4) spontaneous Best motor response: (6) obeys verbal command Best verbal response: (5) oriented and converses Total Kaz (E + M + V) = 15 Current Patient Data Vital Signs Vital Signs Date Time Temp Pulse Resp B/P (MAP) Pulse Ox O2 Delivery O2 Flow Rate FiO2 06/15/19 10:19 70 100 06/15/19 07:58 97.7 18 85/54 (64) Room Air 97.7 Lab Values Laboratory Tests Test 06/15/19 08:45 06/15/19 10:25 White Blood Count 7.8 x10^3/uL (4.0-11.0) Red Blood Count 4.32 x10^6/uL (4.30-5.70) Hemoglobin 13.4 g/dL (13.0-17.5) Hematocrit 39.5 % (39.0-53.0) Mean Corpuscular Volume 91 fL (79-100) Mean Corpuscular Hemoglobin 31 pg (25-35) Mean Corpuscular Hemoglobin Concent 34 g/dL (31-37) Red Cell Distribution Width 12.7 % (11.5-14.5) Platelet Count 169 x10^3/uL (140-400) Neutrophils (%) (Auto) 77 % (31-73) H Lymphocytes (%) (Auto) 10 % (24-48) L Monocytes (%) (Auto) 10 % (0-9) H Eosinophils (%) (Auto) 2 % (0-3) Basophils (%) (Auto) 1 % (0-3) Neutrophils # (Auto) 6.0 x10^3/uL (1.8-7.7) Lymphocytes # (Auto) 0.8 x10^3/uL (1.0-4.8) L Monocytes # (Auto) 0.8 x10^3/uL (0.0-1.1) Eosinophils # (Auto) 0.2 x10^3/uL (0.0-0.7) Basophils # (Auto) 0.0 x10^3/uL (0.0-0.2) Sodium Level 131 mmol/L (136-145) L Potassium Level 3.6 mmol/L (3.5-5.1) Chloride Level 97 mmol/L (98-107) L Carbon Dioxide Level 28 mmol/L (21-32) Anion Gap 6 (6-14) Blood Urea Nitrogen 17 mg/dL (8-26) Creatinine 0.8 mg/dL (0.7-1.3) Estimated GFR (Cockcroft-Gault) 97.6 BUN/Creatinine Ratio 21 (6-20) H Glucose Level 94 mg/dL (70-99) Calcium Level 9.4 mg/dL (8.5-10.1) Total Bilirubin 0.6 mg/dL (0.2-1.0) Aspartate Amino Transferase (AST) 18 U/L (15-37) Alanine Aminotransferase (ALT) 9 U/L (16-63) L Alkaline Phosphatase 67 U/L (46-116) Troponin I Quantitative < 0.017 ng/mL (0.000-0.055) Total Protein 6.9 g/dL (6.4-8.2) Albumin 3.3 g/dL (3.4-5.0) L Albumin/Globulin Ratio 0.9 (1.0-1.7) L Urine Collection Type U cath Urine Color Yellow Urine Clarity Clear Urine pH 5.5 Urine Specific [place] 1.015 Urine Protein Negative mg/dL (NEG-TRACE) Urine Glucose (UA) Negative mg/dL (NEG) Urine Ketones (Stick) Negative mg/dL (NEG) Urine Blood Negative (NEG) Urine Nitrite Negative (NEG) Urine Bilirubin Negative (NEG) Urine Urobilinogen Dipstick 0.2 mg/dL (0.2 mg/dL) Urine Leukocyte Esterase Negative (NEG) Urine RBC 6-10 /HPF (0-2) Urine WBC 0 /HPF (0-4) Urine Squamous Epithelial Cells Occ /LPF Urine Bacteria 0 /HPF (0-FEW) Urine Hyaline Casts Occasional /HPF Urine Mucus Slight /LPF Laboratory Tests 06/15/19 08:45 Laboratory Tests 06/15/19 08:45 EKG EKG [] Radiology/Procedures Radiology/Procedures [] Course & Med Decision Making Course & Med Decision Making Pertinent Labs and Imaging studies reviewed. (See chart for details) [] Dragon Disclaimer Dragon Disclaimer This electronic medical record was generated, in whole or in part, using a voice recognition dictation system. Departure Departure Impression: Primary Impression: Fall Additional Impression: PNA (pneumonia) Disposition: HOME, SELF-CARE Condition: STABLE Referrals: SHANEKA BURROUGHS MD (PCP) Additional Instructions: Thank you for allowing us to participate in your care today. Return to the emergency department you have any new or worsening symptoms, or if you are concerned for any reason. Return to emergency department if you have any new or concerning symptoms including but not limited to fever, chills, nausea, vomiting, intractable pain, any new rashes, chest pain, shortness of air, uncontrolled bleeding, difficulty breathing, and/or vision loss. Follow up with your primary care physician within 1 day. Call your Primary Doctor tomorrow and inform them of your visit today. If you do not have a primary care provider we are happy to provide you with a list of our primary care providers contact information. This condition should be evaluated by your primary care physician and any recommended consulting services for continued management within 2 days after discharge. If at any time, you are having difficulty getting into your primary care doctor or a specialist, return to the emergency department. Scripts Doxycycline Hyclate (DOXYCYCLINE HYCLATE) 100 Mg Capsule 1 CAP PO BID, #14 CAP Prov: JOHN WARNER MD 06/15/19 Problem Qualifiers JOHN WARNER MD Jun 15, 2019 08:19
[2019-06-15 08:56] LABS: BASO % 1 % (0-3); EOS # 0.2 x10^3/uL (0.0-0.7); EOS % 2 % (0-3); HEMATOCRIT 39.5 % (39.0-53.0); HEMOGLOBIN 13.4 g/dL (13.0-17.5); LYMPH # 0.8 x10^3/uL (1.0-4.8); LYMPH % 10 % (24-48); MEAN CORPUSCULAR HEMOGLOBIN 31 pg (25-35); MEAN CORPUSCULAR HGB CONC 34 g/dL (31-37); MEAN CORPUSCULAR VOLUME 91 fL (79-100); MONO # 0.8 x10^3/uL (0.0-1.1); MONO % 10 % (0-9); NEUT % 77 % (31-73); PLATELET COUNT 169 x10^3/uL (140-400); RED BLOOD COUNT 4.32 x10^6/uL (4.30-5.70); RED CELL DISTRIBUTION WIDTH 12.7 % (11.5-14.5); WHITE BLOOD COUNT 7.8 x10^3/uL (4.0-11.0)
--- NOTE | 2019-06-15 08:59 | EKG ---
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
[2019-06-15 09:07] LABS: CALCIUM 9.4 mg/dL (8.5-10.1); CREATININE 0.8 mg/dL (0.7-1.3); GFR 97.6; POTASSIUM 3.6 mmol/L (3.5-5.1)
[2019-06-15 09:13] LABS: ALBUMIN 3.3 g/dL (3.4-5.0); ALBUMIN/GLOBULIN RATIO 0.9 (1.0-1.7); TOTAL BILIRUBIN 0.6 mg/dL (0.2-1.0); TOTAL PROTEIN 6.9 g/dL (6.4-8.2)
--- NOTE | 2019-06-15 09:58 | RAD ---
EXAM: CT Head without IV contrast INDICATION: Fall and back pain. TECHNIQUE: Multi-detector row CT images were obtained of the head without the use of IV contrast. All CT scans performed at this facility utilize dose optimization techniques as appropriate to the exam, including the following: Automated exposure control and adjustment of the mA and/or KV according to patient size (this includes techniques or standardized protocols for targeted exams where dose is indication/reason for exam). DLP 1267.7 mGycm COMPARISON: None FINDINGS: BRAIN PARENCHYMA: No evidence of acute intraparenchymal hemorrhage or infarct. No abnormal parenchymal density or mass. VENTRICLES & EXTRA-AXIAL SPACES: Ventricles are within normal limits. Basilar cisterns are patent. No pathologic extra-axial fluid collection or mass. ORBITS: Orbital contents are unremarkable. SINUSES: Visualized paranasal sinuses and mastoid air cells are clear. OSSEOUS & SOFT TISSUES: Calvarium and skull base are intact. IMPRESSION: Normal CT of the head without contrast. EXAM: CT Cervical Spine without IV contrast INDICATION: Fall with back pain. TECHNIQUE: Multi-detector row CT images were obtained through the cervical spine without the use of IV contrast. Post-processing sagittal and coronal reconstructed images were obtained for interpretation. All CT scans performed at this facility utilize dose optimization techniques as appropriate to the exam, including the following: Automated exposure control and adjustment of the mA and/or KV according to patient size (this includes techniques or standardized protocols for targeted exams where dose is indication/reason for exam). DLP 153.8 mGycm COMPARISON: None FINDINGS: CRANIOCERVICAL JUNCTION: Unremarkable. ALIGNMENT: Alignment is within normal limits. OSSEOUS: No evidence of fracture or bone destruction. 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 Mild early degenerative change at C6-C7 and C7-T1. FACET JOINTS: Fused at C5-C6 bilaterally. No jumped facets or fractures. SPINAL CANAL: Unremarkable. NEUROFORAMINA: Mild right-sided foraminal narrowing at C6-C7. SOFT TISSUES: Unremarkable IMPRESSION: 1. No acute traumatic findings in the cervical spine. 2. Incidental congenital C5-C6 fusion with mild early degenerative changes in the lower vertebral levels. EXAM: CT Thoracic Spine without IV contrast INDICATION: Back pain after a fall TECHNIQUE: Multi-detector row CT images were obtained through the thoracic spine without the use of IV contrast. Post-processing sagittal and coronal reconstructed images were obtained for interpretation. All CT scans performed at this facility utilize dose optimization techniques as appropriate to the exam, including the following: Automated exposure control and adjustment of the mA and/or KV according to patient size (this includes techniques or standardized protocols for targeted exams where dose is indication/reason for exam). DLP 537.3 mGycm COMPARISON: None FINDINGS: ALIGNMENT: Alignment is within normal limits. OSSEOUS: No evidence of fracture or bone destruction. DISC SPACES: Mild multilevel flowing disc osteophytes, primarily right-sided are present. FACET JOINTS: Right T5-T6 facet degenerative change. SPINAL CANAL: Unremarkable. NEUROFORAMINA: Unremarkable. SOFT TISSUES: Patchy bilateral lower lobe pulmonary infiltrates IMPRESSION: 1. No acute traumatic findings in the thoracic spine. EXAM: CT Lumbar Spine without IV contrast INDICATION: Back pain after a fall TECHNIQUE: Multi-detector row CT images were obtained through the lumbar spine without the use of IV contrast. Post-processing sagittal and coronal reconstructed images were obtained for interpretation. All CT scans performed at this facility utilize dose optimization techniques as appropriate to the exam, including the following: Automated exposure control and adjustment of the mA and/or KV according to patient size (this includes techniques or standardized protocols for targeted exams where dose is indication/reason for exam). DLP 467.8 mGycm COMPARISON: None FINDINGS: The lowest fully formed disc is referred to as the L5-S1 level. ALIGNMENT: Alignment is within normal limits. OSSEOUS: No evidence of fracture or bone destruction. Superior endplate Schmorl's node at L1.. DISC SPACES: Unremarkable. FACET JOINTS: Unremarkable. SPINAL CANAL: Unremarkable. NEUROFORAMINA: Unremarkable. SOFT TISSUES: Right common iliac artery stent, and extensive arterial calcifications. IMPRESSION: No acute traumatic findings in the lumbar spine. Electronically signed by: Shari Rogers MD (06/15/2019 9:55 AM) [facility]
--- NOTE | 2019-06-15 10:27 | RAD ---
EXAM: Chest, single view. HISTORY: Fall. COMPARISON: 10/08/2018 FINDINGS: Frontal views of the chest are obtained. There is right greater than left lower lobe infiltrate. No pleural effusion or pneumothorax is seen. The heart is normal in size. There are calcified granulomas. IMPRESSION: Right greater than left lower lobe infiltrate. Follow-up to confirm resolution. Electronically signed by: Pdamaja Joshua MD (06/15/2019 10:24 AM) [place] [id number]
--- NOTE | 2019-06-15 10:34 | RAD ---
EXAM: Pelvis and bilateral hips, eyes views. HISTORY: Pain. Fall. COMPARISON: None. FINDINGS: A frontal view the pelvis and frontal and frog-leg views of both hips are obtained. There is no fracture, dislocation or subluxation. There are and vascular clips within the right inguinal region and right thigh. There is a left thigh vascular stent. IMPRESSION: No acute osseous finding. Electronically signed by: Padmaja Joshua MD (06/15/2019 10:31 AM) [place] [id number]
[2019-06-15 10:41] LABS: BILIRUBIN,URINE NEGATIVE (NEG); CLARITY,URINE CLEAR; COLOR,URINE YELLOW; NITRITE,URINE NEGATIVE (NEG); PH,URINE 5.5; PROTEIN,URINE NEGATIVE (NEG-TRACE); UROBILINOGEN,URINE 0.2 mg/dL (0.2 mg/dL)
[2019-06-15 10:49] VITALS: BP 85/55
[2019-06-15 10:55] LABS: BACTERIA,URINE 0 /HPF (0-FEW); WBC,URINE 0 /HPF (0-4)
[2019-06-15 10:56] LABS: HYALINE CASTS, URINE OCCASIONAL /HPF; SQUAMOUS EPITHELIAL CELL,UR OCC /LPF
[2019-06-15] MEDS ORDERED: DOXY100C2 PO (11:52)
== END 2019-06-15 12:05 | disposition home or self-care (01) ==
LOC: ER 07:58
DX: J18.9 Pneumonia, unspecified organism (principal); M54.2 Cervicalgia; M54.6 Pain in thoracic spine; I48.91 Unspecified atrial fibrillation; I25.10 Atherosclerotic heart disease of native coronary artery without angina pectoris; I10 Essential (primary) hypertension; Z86.718 Personal history of other venous thrombosis and embolism; Z90.49 Acquired absence of other specified parts of digestive tract; Z90.89 Acquired absence of other organs; Z88.0 Allergy status to penicillin; W18.39XA Other fall on same level, initial encounter; Y93.89 Activity, other specified; Y92.89 Other specified places as the place of occurrence of the external cause; Y99.8 Other external cause status
CPT/HCPCS: 36415; 70450; 71045; 72125; 72128; 72131; 73521; 80053; 81001; 84484; 85025; 93005; 99285; P9612